=== PATIENT | male | born 2000 | race Caucasian/White ===

== ENCOUNTER 2023-10-08 09:29 | Emergency (ER) | payer SELFPAY ==
[~2023-10-08] VITALS: Ht 182.9 cm; Wt 77.3 kg
[2023-10-08 09:48] VITALS: TEMP 98.6
[2023-10-08] MEDS ORDERED: predniSONE 20 MG TAB PO ONE (10:45)
[2023-10-08] MEDS ORDERED: Chlorhexidine 0.12% Oral Rinse 480 ML BOTTLE MM ONE (10:45)
[2023-10-08] MEDS ORDERED: AMOXICILLIN 50500 MG PO (11:09)
[2023-10-08] MEDS ORDERED: PREDNISONE20 MG PO (11:09)
[2023-10-08 11:17] VITALS: BP 131/81; PULSE 91
== END 2023-10-08 11:20 | disposition home or self-care (01) ==
LOC: COL.ER 09:29
DX: K02.9 Dental caries, unspecified (principal); K05.10 Chronic gingivitis, plaque induced; F17.200 Nicotine dependence, unspecified, uncomplicated
CPT/HCPCS: J7512